=== PATIENT | female | born 1965 | race Hispanic/Latino ===

== ENCOUNTER 2018-06-07 13:24 | Emergency (ER) | payer BC ==
[2018-06-07] MEDS ORDERED: Ketorolac Tromethamine 60 MG/2 ML VIAL ONE (13:59)
[2018-06-07] MEDS ORDERED: Ondansetron ODT 4 MG TAB ONE (13:59)
== END 2018-06-07 14:36 | disposition home or self-care (01) ==
LOC: ERS 13:24
DX: S39.012A Strain of muscle, fascia and tendon of lower back, initial encounter (principal); X50.9XXA Other and unspecified overexertion or strenuous movements or postures, initial encounter
CPT/HCPCS: 96372; J1885; Q0162

== ENCOUNTER 2021-01-11 09:05 | Inpatient (IN) | payer BC ==
[2021-01-11] MEDS ORDERED: Iopamidol-370 76% 500 ML 1 ML ONE (09:50)
[2021-01-11] MEDS ORDERED: Albuterol 200 PUFF (6.7GM INHALER) ONE (09:53)
[2021-01-11 09:55] LABS: #Lymphocytes 1.5 thou/uL (1.20-3.40); #Monocytes 0.3 thou/uL (0.11-0.59); #Neutrophils 5.9 thou/uL (1.40-6.50); %Basophils 0.2 % (0.0-1.0); %Eosinophils 0.1 % (0.0-10.0); %Lymphocytes 19.9 % (21.0-51.0); %Monocytes 4.2 % (0.0-10.0); %Neutrophils 75.7 % (42.0-75.0); Hemoglobin 15.8 g/dL (12.0-16.0); Mean Corpuscular HGB CONC 32.6 g/dL (32.0-36.0); Mean Corpuscular Hemoglobin 30.9 pg (27.0-31.0); Mean Corpuscular Volume 94.7 fL (78.0-98.0); Mean Platelet Volume 8.3 fL (7.4-10.4); Platelet Count 189 thou/uL (130-400); RBC Distribution Width 12.3 % (11.5-14.5); White Blood Cell (WBC) Count 7.7 thou/uL (4.8-10.8)
[2021-01-11] MEDS ORDERED: Dexamethasone 10 MG/ML VIAL ONE (10:01)
[2021-01-11] MEDS ORDERED: Acetaminophen 500 MG TAB ONE (10:01)
[2021-01-11 10:14] LABS: ALT (SGPT) 52 U/L (8-55); AST (SGOT) 66 U/L (5-34); Albumin 3.9 g/dL (3.5-5.0); Alkaline Phosphatase 56 U/L (40-110); Anion Gap 15 mmol/L (10-20); BUN (Urea Nitrogen) 11 mg/dL (9.8-20.1); Bilirubin, Total 0.5 mg/dL (0.2-1.2); Calc. Creatinine Clearance 0 mL/min (70-130); Calcium 8.7 mg/dL (7.8-10.44); Carbon Dioxide 23 mmol/L (22-29); Chloride 107 mmol/L (98-107); Globulin 3.8 g/dL (2.4-3.5); Glucose 142 mg/dL (70-105); Potassium 4.1 mmol/L (3.5-5.1); Protein, Total 7.7 g/dL (6.0-8.3); Sodium 141 mmol/L (136-145)
[2021-01-11 11:09] LABS: SARS-CoV-2 NAA Rapid Test DETECTED (NotDetected)
[2021-01-11] MEDS ORDERED: Bisacodyl 10 MG SUPP PR PRN (12:00)
[2021-01-11] MEDS ORDERED: Loperamide HCl 2 MG CAP PO PRN (12:00)
[2021-01-11] MEDS ORDERED: hydrALAZINE 20 MG/ML VIAL SLOW IVP PRN (12:00)
[2021-01-11] MEDS ORDERED: Loratadine 10 MG TAB PO PRN (12:00)
[2021-01-11] MEDS ORDERED: Sodium Chloride 0.65% Nasal 44 ML BOT EA NARE PRN (12:00)
[2021-01-11] MEDS ORDERED: Cepastat Lozenges 1 LOZ PO PRN (12:00)
[2021-01-11] MEDS ORDERED: Senokot S 8.6-50 MG TAB PO PRN (12:00)
[2021-01-11] MEDS ORDERED: Ondansetron PF 4 MG/2 ML Vial IVP PRN (12:00)
[2021-01-11] MEDS ORDERED: Calcium Carbonate 500 MG ChewTAB PO PRN (12:00)
[2021-01-11] MEDS ORDERED: Artificial Tear Sol 15 ML BOT EA EYE PRN (12:00)
[2021-01-11] MEDS ORDERED: Ondansetron ODT 4 MG TAB PO PRN (12:00)
[2021-01-11] MEDS ORDERED: Hydrocerin (Eucerin) Cream 120 gm Jar TOP PRN (12:00)
[2021-01-11] MEDS ORDERED: Albuterol 200 PUFF (6.7GM INHALER) INH PRN (12:26)
[2021-01-11] MEDS ORDERED: REMDESIVIR 200 MG in Sodium Chloride 0.9% 250 ML 210 ML IV SCH (14:30)
[2021-01-11 15:37] VITALS: BMI 34.5
[2021-01-11] MEDS: Acetaminophen 325 MG TAB PO PRN (20:12)
[2021-01-11] MEDS: Zolpidem Tartrate 5 MG TAB PO PRN (20:13)
[2021-01-11] MEDS: Guaifenesin DM 100-10/5 ML UDCUP PO PRN (20:13)
[2021-01-12 06:25] LABS: #Lymphocytes 0.9 thou/uL (1.20-3.40); #Monocytes 0.4 thou/uL (0.11-0.59); %Basophils 0.2 % (0.0-1.0); %Eosinophils 0.1 % (0.0-10.0); %Lymphocytes 12.8 % (21.0-51.0); Hemoglobin 15.2 g/dL (12.0-16.0); Mean Corpuscular HGB CONC 30.7 g/dL (32.0-36.0); Mean Corpuscular Hemoglobin 29.3 pg (27.0-31.0); Mean Corpuscular Volume 95.2 fL (78.0-98.0); Mean Platelet Volume 8.1 fL (7.4-10.4); Platelet Count 208 thou/uL (130-400); RBC Distribution Width 12.1 % (11.5-14.5); Red Blood Cell (RBC) Count 5.18 mill/uL (4.20-5.40); White Blood Cell (WBC) Count 7.3 thou/uL (4.8-10.8)
[2021-01-12 06:42] LABS: ALT (SGPT) 52 U/L (8-55); AST (SGOT) 51 U/L (5-34); Albumin 3.5 g/dL (3.5-5.0); Alkaline Phosphatase 52 U/L (40-110); Anion Gap 11 mmol/L (10-20); BUN (Urea Nitrogen) 16 mg/dL (9.8-20.1); Bilirubin, Total 0.4 mg/dL (0.2-1.2); Calc. Creatinine Clearance 127 mL/min (70-130); Carbon Dioxide 26 mmol/L (22-29); Chloride 107 mmol/L (98-107); Globulin 3.8 g/dL (2.4-3.5); Glucose 181 mg/dL (70-105); Magnesium 2.4 mg/dL (1.6-2.6); Phosphorus 3.3 mg/dL (2.3-4.7); Potassium 4.4 mmol/L (3.5-5.1); Protein, Total 7.3 g/dL (6.0-8.3); Sodium 140 mmol/L (136-145)
[2021-01-12] MEDS ORDERED: Vitamin E 400 UNITS CAP PO SCH (09:00)
[2021-01-12] MEDS: Acetaminophen 325 MG TAB PO PRN ×2 (09:18→20:54)
[2021-01-12] MEDS: Guaifenesin DM 100-10/5 ML UDCUP PO PRN ×2 (09:18→20:55)
[2021-01-12] MEDS: Cholecalciferol 1,000 UNITS (25 MCG) TAB PO SCH (09:20)
[2021-01-12] MEDS: Zinc Sulfate 220 MG CAP PO SCH (09:20)
[2021-01-12] MEDS: Ascorbic Acid 500 mg Chewable Tablet PO SCH (09:20)
[2021-01-12] MEDS: Enoxaparin Sodium 40 MG/0.4 ML SYRINGE SC SCH (09:20)
[2021-01-12] MEDS: Dexamethasone 4 mg/ml Vial SLOW IVP SCH (09:21)
[2021-01-12] MEDS: Fluticasone Propionate Nasal Spray 16 gm Bottle NASAL SCH (13:45)
[2021-01-12] MEDS: REMDESIVIR 100 MG in Sodium Chloride 0.9% 250 ML 230 ML IV SCH (15:00)
[2021-01-12] MEDS: Benzonatate 100 MG CAP PO PRN (23:31)
[2021-01-13] MEDS: Guaifenesin DM 100-10/5 ML UDCUP PO PRN (05:45)
[2021-01-13 06:39] LABS: #Lymphocytes 1.2 thou/uL (1.20-3.40); #Monocytes 0.7 thou/uL (0.11-0.59); #Neutrophils 8.5 thou/uL (1.40-6.50); %Basophils 0.3 % (0.0-1.0); %Eosinophils 0.1 % (0.0-10.0); %Lymphocytes 11.6 % (21.0-51.0); %Monocytes 6.8 % (0.0-10.0); %Neutrophils 81.3 % (42.0-75.0); Hemoglobin 15.5 g/dL (12.0-16.0); Mean Corpuscular HGB CONC 32.3 g/dL (32.0-36.0); Mean Corpuscular Hemoglobin 30.8 pg (27.0-31.0); Mean Corpuscular Volume 95.3 fL (78.0-98.0); Mean Platelet Volume 8.5 fL (7.4-10.4); Platelet Count 220 thou/uL (130-400); RBC Distribution Width 12.1 % (11.5-14.5); Red Blood Cell (RBC) Count 5.05 mill/uL (4.20-5.40); White Blood Cell (WBC) Count 10.5 thou/uL (4.8-10.8)
[2021-01-13 06:56] LABS: Anion Gap 13 mmol/L (10-20); BUN (Urea Nitrogen) 17 mg/dL (9.8-20.1); Calc. Creatinine Clearance 132 mL/min (70-130); Calcium 8.7 mg/dL (7.8-10.44); Carbon Dioxide 23 mmol/L (22-29); Chloride 109 mmol/L (98-107); Glucose 200 mg/dL (70-105); Potassium 4.3 mmol/L (3.5-5.1); Sodium 141 mmol/L (136-145)
[2021-01-13] MEDS: Dexamethasone 4 mg/ml Vial SLOW IVP SCH (08:09)
[2021-01-13] MEDS: Ascorbic Acid 500 mg Chewable Tablet PO SCH (08:09)
[2021-01-13] MEDS: Cholecalciferol 1,000 UNITS (25 MCG) TAB PO SCH (08:10)
[2021-01-13] MEDS: Enoxaparin Sodium 40 MG/0.4 ML SYRINGE SC SCH ×2 (08:10→20:52)
[2021-01-13] MEDS: Zinc Sulfate 220 MG CAP PO SCH (08:10)
[2021-01-13] MEDS: Fluticasone Propionate Nasal Spray 16 gm Bottle NASAL SCH (08:36)
[2021-01-13] MEDS: REMDESIVIR 100 MG in Sodium Chloride 0.9% 250 ML 230 ML IV SCH (14:58)
[2021-01-13] MEDS: Zolpidem Tartrate 5 MG TAB PO PRN (20:52)
[2021-01-14] MEDS: Zinc Sulfate 220 MG CAP PO SCH (10:08)
[2021-01-14] MEDS: Ascorbic Acid 500 mg Chewable Tablet PO SCH (10:08)
[2021-01-14] MEDS: Dexamethasone 4 mg/ml Vial SLOW IVP SCH (10:09)
[2021-01-14] MEDS: Cholecalciferol 1,000 UNITS (25 MCG) TAB PO SCH (10:09)
[2021-01-14] MEDS: Enoxaparin Sodium 40 MG/0.4 ML SYRINGE SC SCH ×2 (10:09→20:27)
[2021-01-14] MEDS: REMDESIVIR 100 MG in Sodium Chloride 0.9% 250 ML 230 ML IV SCH (15:15)
[2021-01-14] MEDS: Acetaminophen 325 MG TAB PO PRN (15:18)
[2021-01-14] MEDS: Benzonatate 100 MG CAP PO PRN ×2 (15:18→20:28)
[2021-01-14] MEDS: Fluticasone Propionate Nasal Spray 16 gm Bottle NASAL SCH (16:26)
[2021-01-14] MEDS: Zolpidem Tartrate 5 MG TAB PO PRN (20:28)
[2021-01-15 06:29] LABS: #Monocytes 0.9 thou/uL (0.11-0.59); #Neutrophils 10.5 thou/uL (1.40-6.50); %Basophils 0.1 % (0.0-1.0); %Eosinophils 0.1 % (0.0-10.0); %Lymphocytes 8.1 % (21.0-51.0); %Monocytes 6.9 % (0.0-10.0); %Neutrophils 84.9 % (42.0-75.0); Hemoglobin 16.1 g/dL (12.0-16.0); Mean Corpuscular HGB CONC 33.2 g/dL (32.0-36.0); Mean Corpuscular Hemoglobin 31.4 pg (27.0-31.0); Mean Corpuscular Volume 94.4 fL (78.0-98.0); Mean Platelet Volume 8.2 fL (7.4-10.4); Platelet Count 279 thou/uL (130-400); Red Blood Cell (RBC) Count 5.12 mill/uL (4.20-5.40); White Blood Cell (WBC) Count 12.4 thou/uL (4.8-10.8)
[2021-01-15 06:50] LABS: ALT (SGPT) 41 U/L (8-55); AST (SGOT) 22 U/L (5-34); Albumin 3.6 g/dL (3.5-5.0); Alkaline Phosphatase 55 U/L (40-110); Anion Gap 12 mmol/L (10-20); BUN (Urea Nitrogen) 18 mg/dL (9.8-20.1); Bilirubin, Total 0.7 mg/dL (0.2-1.2); Calc. Creatinine Clearance 127 mL/min (70-130); Calcium 8.7 mg/dL (7.8-10.44); Carbon Dioxide 25 mmol/L (22-29); Chloride 108 mmol/L (98-107); Globulin 3.6 g/dL (2.4-3.5); Glucose 217 mg/dL (70-105); Potassium 4.2 mmol/L (3.5-5.1); Protein, Total 7.2 g/dL (6.0-8.3); Sodium 141 mmol/L (136-145)
[2021-01-15] MEDS: Zinc Sulfate 220 MG CAP PO SCH (07:53)
[2021-01-15] MEDS: Ascorbic Acid 500 mg Chewable Tablet PO SCH (07:53)
[2021-01-15] MEDS: Cholecalciferol 1,000 UNITS (25 MCG) TAB PO SCH (07:53)
[2021-01-15] MEDS: Dexamethasone 4 mg/ml Vial SLOW IVP SCH (07:53)
[2021-01-15] MEDS: Enoxaparin Sodium 40 MG/0.4 ML SYRINGE SC SCH ×2 (07:54→20:35)
[2021-01-15] MEDS: Fluticasone Propionate Nasal Spray 16 gm Bottle NASAL SCH (08:04)
[2021-01-15] MEDS: cefTRIAXone\\ROCEPHIN 1 GM in Sodium Chloride 0.9% 100 ML IVPB SCH (08:09)
[2021-01-15] MEDS: Doxycycline 100 MG CAP PO SCH ×2 (08:59→20:12)
[2021-01-15] MEDS ORDERED: Furosemide 40 MG/4 ML VIAL ONE (12:29)
[2021-01-15] MEDS ORDERED: Furosemide 20 MG/2 ML VIAL SLOW IVP SCH (12:45)
[2021-01-15] MEDS: REMDESIVIR 100 MG in Sodium Chloride 0.9% 250 ML 230 ML IV SCH (15:18)
[2021-01-15] MEDS: Zolpidem Tartrate 5 MG TAB PO PRN (20:12)
[2021-01-15] MEDS: Benzonatate 100 MG CAP PO PRN (20:12)
[2021-01-15] MEDS: HYDROcodone/Acetaminophen 5/325 mg Tablet PO PRN (20:15)
[2021-01-15] MEDS: Guaifenesin DM 100-10/5 ML UDCUP PO PRN (20:16)
[2021-01-16] MEDS: cefTRIAXone\\ROCEPHIN 1 GM in Sodium Chloride 0.9% 100 ML IVPB SCH (07:51)
[2021-01-16] MEDS: Zinc Sulfate 220 MG CAP PO SCH (07:52)
[2021-01-16] MEDS: Doxycycline 100 MG CAP PO SCH ×2 (07:52→20:35)
[2021-01-16] MEDS: Dexamethasone 4 mg/ml Vial SLOW IVP SCH (07:52)
[2021-01-16] MEDS: Ascorbic Acid 500 mg Chewable Tablet PO SCH (07:53)
[2021-01-16] MEDS: Cholecalciferol 1,000 UNITS (25 MCG) TAB PO SCH (07:53)
[2021-01-16] MEDS: Enoxaparin Sodium 40 MG/0.4 ML SYRINGE SC SCH ×2 (07:53→20:35)
[2021-01-16] MEDS: Fluticasone Propionate Nasal Spray 16 gm Bottle NASAL SCH (08:17)
[2021-01-16] MEDS: Zolpidem Tartrate 5 MG TAB PO PRN (20:30)
[2021-01-16] MEDS: Benzonatate 100 MG CAP PO PRN (20:35)
[2021-01-16] MEDS: Guaifenesin DM 100-10/5 ML UDCUP PO PRN (20:35)
[2021-01-16] MEDS: HYDROcodone/Acetaminophen 5/325 mg Tablet PO PRN (21:45)
[2021-01-17 07:04] LABS: #Basophils 0.1 thou/uL (0.0-0.2); #Monocytes 0.6 thou/uL (0.11-0.59); #Neutrophils 8.3 thou/uL (1.40-6.50); %Eosinophils 0.2 % (0.0-10.0); %Lymphocytes 9.8 % (21.0-51.0); %Monocytes 6.2 % (0.0-10.0); %Neutrophils 82.9 % (42.0-75.0); Mean Corpuscular HGB CONC 32.7 g/dL (32.0-36.0); Mean Corpuscular Hemoglobin 30.8 pg (27.0-31.0); Mean Corpuscular Volume 94.2 fL (78.0-98.0); Mean Platelet Volume 8.5 fL (7.4-10.4); Platelet Count 323 thou/uL (130-400); Red Blood Cell (RBC) Count 5.53 mill/uL (4.20-5.40)
[2021-01-17 07:36] LABS: Chloride 108 mmol/L (98-107); Sodium 137 mmol/L (136-145)
[2021-01-17 07:37] LABS: Glucose 256 mg/dL (70-105)
[2021-01-17 07:39] LABS: Carbon Dioxide 18 mmol/L (22-29)
[2021-01-17 07:41] LABS: Calc. Creatinine Clearance 117 mL/min (70-130)
[2021-01-17 07:42] LABS: BUN (Urea Nitrogen) 20 mg/dL (9.8-20.1)
[2021-01-17 07:46] LABS: Anion Gap 17 mmol/L (10-20)
[2021-01-17] MEDS: cefTRIAXone\\ROCEPHIN 1 GM in Sodium Chloride 0.9% 100 ML IVPB SCH (09:00)
[2021-01-17] MEDS: Doxycycline 100 MG CAP PO SCH ×2 (09:00→22:17)
[2021-01-17] MEDS: Zinc Sulfate 220 MG CAP PO SCH (09:00)
[2021-01-17] MEDS: Dexamethasone 4 mg/ml Vial SLOW IVP SCH (09:00)
[2021-01-17] MEDS: Cholecalciferol 1,000 UNITS (25 MCG) TAB PO SCH (09:00)
[2021-01-17] MEDS: Ascorbic Acid 500 mg Chewable Tablet PO SCH (09:00)
[2021-01-17] MEDS: Enoxaparin Sodium 40 MG/0.4 ML SYRINGE SC SCH ×2 (09:01→22:18)
[2021-01-17] MEDS: Fluticasone Propionate Nasal Spray 16 gm Bottle NASAL SCH (09:01)
[2021-01-17] MEDS: Acetaminophen 325 MG TAB PO PRN (10:58)
[2021-01-17] MEDS: HYDROcodone/Acetaminophen 5/325 mg Tablet PO PRN (22:17)
[2021-01-17] MEDS: Benzonatate 100 MG CAP PO PRN (22:17)
[2021-01-17] MEDS: Guaifenesin DM 100-10/5 ML UDCUP PO PRN (22:18)
[2021-01-18] MEDS: cefTRIAXone\\ROCEPHIN 1 GM in Sodium Chloride 0.9% 100 ML IVPB SCH (07:47)
[2021-01-18] MEDS: Doxycycline 100 MG CAP PO SCH ×2 (07:47→20:59)
[2021-01-18] MEDS: Dexamethasone 4 mg/ml Vial SLOW IVP SCH (07:47)
[2021-01-18] MEDS: Ascorbic Acid 500 mg Chewable Tablet PO SCH (07:48)
[2021-01-18] MEDS: Cholecalciferol 1,000 UNITS (25 MCG) TAB PO SCH (07:48)
[2021-01-18] MEDS: Zinc Sulfate 220 MG CAP PO SCH (07:48)
[2021-01-18] MEDS: Fluticasone Propionate Nasal Spray 16 gm Bottle NASAL SCH (07:51)
[2021-01-18] MEDS: Enoxaparin Sodium 40 MG/0.4 ML SYRINGE SC SCH ×2 (07:59→20:59)
[2021-01-18] MEDS ORDERED: Dextrose 5% in Water 1,000 ML IV PRN (10:09)
[2021-01-18] MEDS ORDERED: HumaLOG 300 UNITS/3 ML VIAL SC PRN ×2 (10:09→23:00)
[2021-01-18] MEDS ORDERED: Dextrose 50% Abboject 50 ML SYRINGE SLOW IVP PRN (10:09)
[2021-01-18 10:33] LABS: Anion Gap 15 mmol/L (10-20); BUN (Urea Nitrogen) 20 mg/dL (9.8-20.1); Calc. Creatinine Clearance 119 mL/min (70-130); Calcium 9.3 mg/dL (7.8-10.44); Carbon Dioxide 23 mmol/L (22-29); Chloride 107 mmol/L (98-107); Glucose 253 mg/dL (70-105); Potassium 4.4 mmol/L (3.5-5.1); Sodium 141 mmol/L (136-145)
[2021-01-18 11:08] LABS: Hemoglobin A1c 7.9 % (4.0-6.0)
[2021-01-18] MEDS: Guaifenesin DM 100-10/5 ML UDCUP PO PRN (20:59)
[2021-01-18] MEDS: Benzonatate 100 MG CAP PO PRN (20:59)
[2021-01-18] MEDS: Zolpidem Tartrate 5 MG TAB PO PRN (20:59)
[2021-01-18] MEDS: Acetaminophen 325 MG TAB PO PRN (21:01)
[2021-01-19] MEDS: cefTRIAXone\\ROCEPHIN 1 GM in Sodium Chloride 0.9% 100 ML IVPB SCH (08:23)
[2021-01-19] MEDS: Doxycycline 100 MG CAP PO SCH ×2 (08:23→19:46)
[2021-01-19] MEDS: Ascorbic Acid 500 mg Chewable Tablet PO SCH (08:23)
[2021-01-19] MEDS: Zinc Sulfate 220 MG CAP PO SCH (08:23)
[2021-01-19] MEDS: Cholecalciferol 1,000 UNITS (25 MCG) TAB PO SCH (08:24)
[2021-01-19] MEDS: Enoxaparin Sodium 40 MG/0.4 ML SYRINGE SC SCH ×2 (08:24→19:46)
[2021-01-19] MEDS: Dexamethasone 4 mg/ml Vial SLOW IVP SCH (08:24)
[2021-01-19] MEDS: Fluticasone Propionate Nasal Spray 16 gm Bottle NASAL SCH (08:32)
[2021-01-19] MEDS ORDERED: Dextrose 50% Abboject 50 ML SYRINGE SLOW IVP PRN (09:38)
[2021-01-19] MEDS ORDERED: Dextrose 5% in Water 1,000 ML IV PRN (09:38)
[2021-01-19] MEDS: HumaLOG 300 UNITS/3 ML VIAL SC PRN ×3 (13:18→19:47)
[2021-01-19] MEDS: metFORMIN 500 MG TAB PO SCH (16:36)
[2021-01-19] MEDS: Acetaminophen 325 MG TAB PO PRN (22:30)
[2021-01-19] MEDS: Benzonatate 100 MG CAP PO PRN (22:30)
[2021-01-19] MEDS: Guaifenesin DM 100-10/5 ML UDCUP PO PRN (22:30)
[2021-01-19] MEDS: Zolpidem Tartrate 5 MG TAB PO PRN (22:31)
[2021-01-20] MEDS: HumaLOG 300 UNITS/3 ML VIAL SC PRN ×4 (05:19→20:32)
[2021-01-20] MEDS: metFORMIN 500 MG TAB PO SCH ×2 (08:22→16:40)
[2021-01-20] MEDS: cefTRIAXone\\ROCEPHIN 1 GM in Sodium Chloride 0.9% 100 ML IVPB SCH (08:22)
[2021-01-20] MEDS: Zinc Sulfate 220 MG CAP PO SCH (08:23)
[2021-01-20] MEDS: Cholecalciferol 1,000 UNITS (25 MCG) TAB PO SCH (08:23)
[2021-01-20] MEDS: Ascorbic Acid 500 mg Chewable Tablet PO SCH (08:23)
[2021-01-20] MEDS: Dexamethasone 4 mg/ml Vial SLOW IVP SCH (08:24)
[2021-01-20] MEDS: Doxycycline 100 MG CAP PO SCH ×2 (08:27→20:11)
[2021-01-20] MEDS: Enoxaparin Sodium 40 MG/0.4 ML SYRINGE SC SCH ×2 (09:24→20:11)
[2021-01-20] MEDS: Fluticasone Propionate Nasal Spray 16 gm Bottle NASAL SCH (09:24)
[2021-01-20] MEDS: Albuterol 200 PUFF (6.7GM INHALER) INH SCH (20:10)
[2021-01-20] MEDS ORDERED: Dexamethasone 10 MG/ML VIAL SLOW IVP SCH (21:00)
[2021-01-20] MEDS: Acetaminophen 325 MG TAB PO PRN (22:54)
[2021-01-20] MEDS: Guaifenesin DM 100-10/5 ML UDCUP PO PRN (22:54)
[2021-01-20] MEDS: Benzonatate 100 MG CAP PO PRN (22:54)
[2021-01-21] MEDS: HumaLOG 300 UNITS/3 ML VIAL SC PRN ×4 (06:08→20:43)
[2021-01-21] MEDS: Albuterol 200 PUFF (6.7GM INHALER) INH SCH ×4 (06:08→18:17)
[2021-01-21] MEDS: cefTRIAXone\\ROCEPHIN 1 GM in Sodium Chloride 0.9% 100 ML IVPB SCH (08:52)
[2021-01-21] MEDS: Doxycycline 100 MG CAP PO SCH ×2 (08:52→20:42)
[2021-01-21] MEDS: Zinc Sulfate 220 MG CAP PO SCH (08:53)
[2021-01-21] MEDS: Ascorbic Acid 500 mg Chewable Tablet PO SCH (08:53)
[2021-01-21] MEDS: metFORMIN 500 MG TAB PO SCH ×2 (08:53→17:52)
[2021-01-21] MEDS: Enoxaparin Sodium 40 MG/0.4 ML SYRINGE SC SCH ×2 (08:54→20:42)
[2021-01-21] MEDS: Cholecalciferol 1,000 UNITS (25 MCG) TAB PO SCH (08:54)
[2021-01-21] MEDS ORDERED: Lantus 1000 UNITS/10 ML VIAL SC SCH (09:00)
[2021-01-21] MEDS: Fluticasone Propionate Nasal Spray 16 gm Bottle NASAL SCH (09:00)
[2021-01-21] MEDS: Acetaminophen 325 MG TAB PO PRN ×2 (10:11→20:46)
[2021-01-21] MEDS: Guaifenesin DM 100-10/5 ML UDCUP PO PRN (20:45)
[2021-01-21] MEDS: Zolpidem Tartrate 5 MG TAB PO PRN (20:46)
[2021-01-21] MEDS: Benzonatate 100 MG CAP PO PRN (20:46)
[2021-01-22] MEDS: Albuterol 200 PUFF (6.7GM INHALER) INH SCH ×4 (06:02→18:38)
[2021-01-22] MEDS: HumaLOG 300 UNITS/3 ML VIAL SC PRN ×3 (06:02→20:35)
[2021-01-22] MEDS: cefTRIAXone\\ROCEPHIN 1 GM in Sodium Chloride 0.9% 100 ML IVPB SCH (07:56)
[2021-01-22] MEDS: Zinc Sulfate 220 MG CAP PO SCH (07:58)
[2021-01-22] MEDS: Ascorbic Acid 500 mg Chewable Tablet PO SCH (07:58)
[2021-01-22] MEDS: Enoxaparin Sodium 40 MG/0.4 ML SYRINGE SC SCH ×2 (07:58→20:34)
[2021-01-22] MEDS: Doxycycline 100 MG CAP PO SCH ×2 (07:58→20:34)
[2021-01-22] MEDS: metFORMIN 500 MG TAB PO SCH ×2 (07:59→17:16)
[2021-01-22] MEDS: Cholecalciferol 1,000 UNITS (25 MCG) TAB PO SCH (07:59)
[2021-01-22] MEDS: Lantus 1000 UNITS/10 ML VIAL SC SCH (08:00)
[2021-01-22] MEDS: Fluticasone Propionate Nasal Spray 16 gm Bottle NASAL SCH (08:14)
[2021-01-22] MEDS ORDERED: Dexamethasone 10 MG/ML VIAL SLOW IVP SCH (16:00)
[2021-01-22] MEDS ORDERED: Ivermectin 3 MG TAB PO SCH (16:30)
[2021-01-22] MEDS: Acetaminophen 325 MG TAB PO PRN (20:39)
[2021-01-22] MEDS: Benzonatate 100 MG CAP PO PRN (20:39)
[2021-01-22] MEDS: Zolpidem Tartrate 5 MG TAB PO PRN (20:39)
[2021-01-22] MEDS: Guaifenesin DM 100-10/5 ML UDCUP PO PRN (20:39)
[2021-01-23] MEDS: HumaLOG 300 UNITS/3 ML VIAL SC PRN ×3 (05:41→16:42)
[2021-01-23] MEDS: Dexamethasone 10 MG/ML VIAL SLOW IVP SCH ×2 (05:41→16:41)
[2021-01-23] MEDS: Albuterol 200 PUFF (6.7GM INHALER) INH SCH ×4 (06:13→18:35)
[2021-01-23] MEDS: cefTRIAXone\\ROCEPHIN 1 GM in Sodium Chloride 0.9% 100 ML IVPB SCH (08:12)
[2021-01-23] MEDS: Ivermectin 3 MG TAB PO SCH (08:13)
[2021-01-23] MEDS: Benzonatate 100 MG CAP PO PRN (08:13)
[2021-01-23] MEDS: Zinc Sulfate 220 MG CAP PO SCH (08:13)
[2021-01-23] MEDS: Doxycycline 100 MG CAP PO SCH ×2 (08:13→20:18)
[2021-01-23] MEDS: Cholecalciferol 1,000 UNITS (25 MCG) TAB PO SCH (08:14)
[2021-01-23] MEDS: Ascorbic Acid 500 mg Chewable Tablet PO SCH (08:14)
[2021-01-23] MEDS: metFORMIN 500 MG TAB PO SCH ×2 (08:15→16:40)
[2021-01-23] MEDS: Fluticasone Propionate Nasal Spray 16 gm Bottle NASAL SCH (08:15)
[2021-01-23] MEDS: Enoxaparin Sodium 40 MG/0.4 ML SYRINGE SC SCH ×2 (08:15→20:18)
[2021-01-23] MEDS: Lantus 1000 UNITS/10 ML VIAL SC SCH (08:17)
[2021-01-23] MEDS: Acetaminophen 325 MG TAB PO PRN (22:44)
[2021-01-23] MEDS: Zolpidem Tartrate 5 MG TAB PO PRN (22:45)
[2021-01-24] MEDS: Dexamethasone 10 MG/ML VIAL SLOW IVP SCH ×2 (05:59→16:57)
[2021-01-24] MEDS: Albuterol 200 PUFF (6.7GM INHALER) INH SCH ×4 (06:00→18:26)
[2021-01-24] MEDS: HumaLOG 300 UNITS/3 ML VIAL SC PRN ×4 (06:00→20:44)
[2021-01-24] MEDS: cefTRIAXone\\ROCEPHIN 1 GM in Sodium Chloride 0.9% 100 ML IVPB SCH (08:09)
[2021-01-24] MEDS: Ivermectin 3 MG TAB PO SCH (08:12)
[2021-01-24] MEDS: Doxycycline 100 MG CAP PO SCH ×2 (08:14→20:42)
[2021-01-24] MEDS: Benzonatate 100 MG CAP PO PRN (08:14)
[2021-01-24] MEDS: Zinc Sulfate 220 MG CAP PO SCH (08:14)
[2021-01-24] MEDS: Enoxaparin Sodium 40 MG/0.4 ML SYRINGE SC SCH ×2 (08:14→20:43)
[2021-01-24] MEDS: Ascorbic Acid 500 mg Chewable Tablet PO SCH (08:14)
[2021-01-24] MEDS: metFORMIN 500 MG TAB PO SCH ×2 (08:14→16:57)
[2021-01-24] MEDS: Cholecalciferol 1,000 UNITS (25 MCG) TAB PO SCH (08:14)
[2021-01-24] MEDS: Lantus 1000 UNITS/10 ML VIAL SC SCH (08:15)
[2021-01-24] MEDS: Fluticasone Propionate Nasal Spray 16 gm Bottle NASAL SCH (08:20)
[2021-01-24] MEDS: Acetaminophen 325 MG TAB PO PRN (20:42)
[2021-01-24] MEDS: Zolpidem Tartrate 5 MG TAB PO PRN (20:43)
[2021-01-24] MEDS: Guaifenesin DM 100-10/5 ML UDCUP PO PRN (20:43)
[2021-01-25] MEDS: Dexamethasone 10 MG/ML VIAL SLOW IVP SCH (05:35)
[2021-01-25] MEDS: HumaLOG 300 UNITS/3 ML VIAL SC PRN ×2 (05:35→13:14)
[2021-01-25] MEDS: Albuterol 200 PUFF (6.7GM INHALER) INH SCH ×3 (05:35→15:01)
[2021-01-25] MEDS: cefTRIAXone\\ROCEPHIN 1 GM in Sodium Chloride 0.9% 100 ML IVPB SCH (07:58)
[2021-01-25] MEDS: Enoxaparin Sodium 40 MG/0.4 ML SYRINGE SC SCH (07:59)
[2021-01-25] MEDS: Cholecalciferol 1,000 UNITS (25 MCG) TAB PO SCH (08:00)
[2021-01-25] MEDS: Ivermectin 3 MG TAB PO SCH (08:00)
[2021-01-25] MEDS: Ascorbic Acid 500 mg Chewable Tablet PO SCH (08:00)
[2021-01-25] MEDS: Zinc Sulfate 220 MG CAP PO SCH (08:00)
[2021-01-25] MEDS: metFORMIN 500 MG TAB PO SCH (08:00)
[2021-01-25] MEDS: Fluticasone Propionate Nasal Spray 16 gm Bottle NASAL SCH (08:01)
[2021-01-25] MEDS: Lantus 1000 UNITS/10 ML VIAL SC SCH (08:01)
[2021-01-25] MEDS: Doxycycline 100 MG CAP PO SCH (08:03)
[2021-01-25] MEDS ORDERED: Vitamin E 400 UNITS CAP PO SCH (09:00)
[2021-01-25 11:39] VITALS: TEMP 98
[2021-01-25 14:23] VITALS: BP 106/70
== END 2021-01-25 15:46 | disposition home health service (06) | DRG 177 ==
LOC: ERS 09:05 → ERHOLD 11:01 → T4-A 15:11
PROVIDERS: ADMIT Internal Medicine; ATTEND Family Medicine
PROC: XW033E5 Introduction of Remdesivir Anti-infective into Peripheral Vein, Percutaneous Approach, New Technology Group 5 (ICD-10-PCS; principal; 2021-01-11)
PROC: 8E0ZXY6 Isolation (ICD-10-PCS; 2021-01-11)
DX: U07.1 COVID-19 (principal); J12.82 Pneumonia due to coronavirus disease 2019; J96.01 Acute respiratory failure with hypoxia; E66.9 Obesity, unspecified; E11.65 Type 2 diabetes mellitus with hyperglycemia; Z68.34 Body mass index [BMI] 34.0-34.9, adult; Z98.890 Other specified postprocedural states; Z88.5 Allergy status to narcotic agent; Z85.41 Personal history of malignant neoplasm of cervix uteri
CPT/HCPCS: 0240U; 36415; 36416; 71045; 71275; 80048; 80053; 82728; 83036; 83735; 84100; 84145; 84484; 85025; 85379; 86140; 93005; 96374; J0696; J1100; J1650; J1815; J1940; J3490; J7050; Q9967